=== PATIENT | female | born 1965 | race Caucasian/White ===

== ENCOUNTER 2023-09-20 14:07 | Outpatient (CLI) | payer MEDICAID, SELFPAY ==
--- NOTE | 2023-09-20 14:00 | CRLHL7_ITS ---
For Patients: As a result of the Century Cures Act, medical imaging exams and procedure reports are released immediately into your electronic medical record. You may view this report before your referring provider. If you have questions, please contact your health care provider. BILATERAL SCREENING MAMMOGRAM WITH COMPUTER-AIDED DETECTION AND TOMOSYNTHESIS TECHNIQUE: CC and MLO views were obtained. These mammographic images have been obtained using full-field digital technique. These mammographic images were interpreted with the benefit of computer-aided detection. Breast tomosynthesis was used in this interpretation. COMPARISON FILM: 07/21/22, 04/14/21, 04/03/20. FINDINGS: The breasts are heterogeneously dense, which may obscure small masses. IMPRESSION: There is no radiographic evidence for malignancy. ASSESSMENT: BI-RADS Category 2: Benign RECOMMENDATION: Routine screening mammogram in 1 year. A lay language report of this examination will be provided to the patient. ERIC ATKINSON M.D. Diagnostic Radiologist [email or web address] Transcribed: 09/28/2023, 2:[address]/Dictated by: Eric Atkinson MD @ 09/28/2023 9:56:00 AM (Electronically Signed)
== END 2023-09-20 14:08 | disposition home or self-care (01) ==
LOC: MAMMO 14:07
PROVIDERS: Visit Provider Obstetrics & Gynecology
DX: Z12.31 Encounter for screening mammogram for malignant neoplasm of breast (principal); R92.2 Inconclusive mammogram; Z01.419 Encounter for gynecological examination (general) (routine) without abnormal findings; Z13.6 Encounter for screening for cardiovascular disorders; Z13.1 Encounter for screening for diabetes mellitus
CPT/HCPCS: 77063; 77067; 80061; 82947

== ENCOUNTER 2023-10-21 14:49 | Outpatient (CLI) | payer OTHER, SELFPAY ==
--- NOTE | 2023-10-21 15:00 | CRLHL7_ITS ---
For Patients: As a result of the Century Cures Act, medical imaging exams and procedure reports are released immediately into your electronic medical record. You may view this report before your referring provider. If you have questions, please contact your health care provider. DXA BONE MINERAL DENSITY STUDY Reason for exam: Age-related osteoporosis without current pathology. Current height (inches): 60.0 Weight (lbs.): 140.0 Menopause age: 49 Ethnicity: White 1. Have you had a previous hip or vertebral fracture? No. 2. Have you had any fractures during your adult life which did not result from significant trauma (e.g., auto accident)? No. 3. Did either of your parents have a hip fracture? No. 4. Do you smoke? No. 5. Have you ever taken Glucocorticoids? No. 6. Do you have rheumatoid arthritis? No. 7. Do you have secondary osteoporosis? No. 8. Do you drink 3 or more alcoholic drinks per day? No. 9. Are you being treated for osteoporosis? No. 10. Have you ever taken any of the following medications: Actonel, Evista, Fosamax, Miacalcin, Reclast, Boniva, Forteo, HRT (i.e., estrogen/hormone therapy), Protelos, Prolia, Vitamin D, Calcium, other ??? please specify. ANSWER: Yes; Fosamax, vitamin D, calcium. 11. Do you have any of the following medical conditions: Anorexia or bulimia, asthma or emphysema, end stage renal disease, hyperparathyroidism, any seizure disorders, cancer, inflammatory bowel diseases, hysterectomy, other ??? please specify. ANSWER: No. 12. What was your maximum height (inches)? 60. 13. Do you perform weightbearing exercise regularly? Yes. 14. Do you regularly consume dairy products? Yes. 15. Do you drink caffeinated beverages? Yes. 16. At what age did your period start? 15. 17. Are you premenopausal? No. 18. How many full-term pregnancies have you had? 2. 19. Have you ever missed your period for more than 6 months in a row (not including or menopause)? No. TECHNIQUE: Bone mineral density study was performed using the [employer]. FINDINGS: The results of the study expressed as bone mineral density (BMD) are as follows: Lumbar Spine L1 to L4: BMD: 0.652 g/cm2. T-score: -3.6. Z-score: -2.3. Neck Left: BMD: 0.581 g/cm2. T-score: -2.4. Z-score: -1.2. Right: BMD: 0.611 g/cm2. T-score: -2.1. Z-score: -1.0. Total Left: BMD: 0.747 g/cm2. T-score: -1.6. Z-score: -0.8. Right: BMD: 0.757 g/cm2. T-score: -1.5. Z-score: -0.7. IMPRESSION: Osteoporosis. ERIC ATKINSON M.D. Diagnostic Radiologist [email or web address] Transcribed: 5:[address]/Dictated by: Eric Atkinson MD @ 10/22/2023 8:16:00 AM (Electronically Signed)
== END 2023-10-21 14:50 | disposition home or self-care (01) ==
PROVIDERS: Visit Provider Obstetrics & Gynecology
DX: M81.0 Age-related osteoporosis without current pathological fracture (principal); M85.89 Other specified disorders of bone density and structure, multiple sites
CPT/HCPCS: 77080

== ENCOUNTER 2024-03-22 18:16 | Outpatient (CLI) | payer OTHER, SELFPAY ==
--- NOTE | 2024-03-22 18:15 | CRLHL7_ITS ---
For Patients: As a result of the Century Cures Act, medical imaging exams and procedure reports are released immediately into your electronic medical record. You may view this report before your referring provider. If you have questions, please contact your health care provider. INDICATIONS: Knee pain. Worse with activity. COMPARISON: Plain film 21 Mar 2024. TECHNIQUE: Axial T1 and PD fat-sat, coronal PD and PD fat sat and sagittal PD and T2 fat-sat left knee. FINDINGS: Medial compartment: Meniscus: Intact. Articular cartilage: Minimal shallow uniform grade 2 thinning. MCL: Intact. Cruciate ligaments: ACL: Intact. PCL: Intact. Lateral compartment: Meniscus: Intact. Articular cartilage: Uniform and well-maintained. Lateral collateral complex: Intact. Somewhat thickened iliotibial band. Minimal edema between the IT band and femur and some subtle edema superficial to the thickened fascia. Patellofemoral compartment: Focal increased T2 signal in the mid patella at the junction of medial facet and odd facet. Likely full-thickness fissure between the 2 facets leading to small shallow subchondral cyst with surrounding edema. Trochlear cartilage is uniform. Extensor mechanism: Distal quadriceps tendon and patellar tendon are intact with anatomic patellar alignment. Bones and soft tissues: Subtle short curvilinear focus of edema signal and incomplete low T1 and T2 signal suggesting incomplete stress or insufficiency type trabecular fracture at the anterior medial tibial plateau. No transcortical extension. No kissing contusion in the femur. Physiologic fluid in the joint. Small to moderate-sized popliteal Florence`s cyst. IMPRESSION: 1. Small trabecular insufficiency or stress type fracture at the anterior medial tibial plateau without transcortical extension. 2. No internal derangement of menisci or ligaments. 3. Focal chondromalacia and likely full-thickness fissure at the junction of body and medial facet mid patella. 4. Minor uniform grade 2 cartilage thinning medial compartment. 5. Correlate clinically for iliotibial band syndrome. Dictated by Jalil Hoyt MD @ 03/23/2024 11:33:10 AM (Electronically Signed)
== END 2024-03-22 18:17 | disposition home or self-care (01) ==
PROVIDERS: PCP Family Medicine; Visit Provider Family Medicine
DX: M25.562 Pain in left knee (principal); S89.92XA Unspecified injury of left lower leg, initial encounter; M22.42 Chondromalacia patellae, left knee
CPT/HCPCS: 73721

== ENCOUNTER 2024-05-03 13:45 | Outpatient (RCR) | payer OTHER, SELFPAY | END 2024-08-23 11:33 | disposition home or self-care (01) | PROVIDERS: Visit Provider Physician Assistant Surgical | DX: M84.362A Stress fracture, left tibia, initial encounter for fracture (principal); S89.92XA Unspecified injury of left lower leg, initial encounter; Z74.09 Other reduced mobility; M62.81 Muscle weakness (generalized); M25.562 Pain in left knee; Z51.89 Encounter for other specified aftercare | CPT/HCPCS: 97110; 97161 ==

== ENCOUNTER 2024-06-23 07:13 | Outpatient (CLI) | payer OTHER, SELFPAY ==
--- NOTE | 2024-06-23 07:15 | CRLHL7_ITS ---
For Patients: As a result of the Century Cures Act, medical imaging exams and procedure reports are released immediately into your electronic medical record. You may view this report before your referring provider. If you have questions, please contact your health care provider. INDICATION: Abnormal uterine bleeding COMPARISON: none TECHNIQUE: 2D lazar scale and color Doppler images were acquired of the pelvis using a transabdominal and transvaginal approach. FINDINGS: Sonographic images demonstrate a normal size and smooth outer contour of the uterus. Uterus measures 7.0 cm in length by 2.8 cm in AP diameter by 3.3 cm in transverse dimension. Heterogeneous structure is present adjacent to the endometrium within the posterior uterus measuring 10 x 6 x 7 millimeters. Endometrial stripe measures 2 millimeters. The right ovary measures 2.4 x 1.1 x 1.1 cm in size and the left ovary measures 1.7 x 0.8 x 1.2 cm. The ovaries demonstrate normal arterial and venous blood flow on color Doppler analysis. There are no suspicious fluid collections within the cul-de-sac. IMPRESSION: Probable submucosal fibroid adjacent to the posterior fundal endometrium measuring 1 cm. Dictated by Eric Joiner MD @ 06/23/2024 12:10:59 PM (Electronically Signed)
== END 2024-06-23 07:14 | disposition home or self-care (01) ==
LOC: US 07:13
PROVIDERS: PCP Family Medicine; Visit Provider Obstetrics & Gynecology
DX: N93.9 Abnormal uterine and vaginal bleeding, unspecified (principal); R93.89 Abnormal findings on diagnostic imaging of other specified body structures
CPT/HCPCS: 76830; 76856

== ENCOUNTER 2024-10-06 13:42 | Outpatient (CLI) | payer OTHER, SELFPAY ==
--- NOTE | 2024-10-06 14:00 | CRLHL7_ITS ---
For Patients: As a result of the Century Cures Act, medical imaging exams and procedure reports are released immediately into your electronic medical record. You may view this report before your referring provider. If you have questions, please contact your health care provider. BILATERAL SCREENING MAMMOGRAM WITH COMPUTER-AIDED DETECTION AND TOMOSYNTHESIS TECHNIQUE: CC and MLO views were obtained. These mammographic images have been obtained using full-field digital technique. These mammographic images were interpreted with the benefit of computer-aided detection. Breast Tomosynthesis was used in this interpretation. COMPARISON FILM: 09/20/23, 07/21/22, 04/14/21. FINDINGS: The breasts are heterogeneously dense, which may obscure small masses. IMPRESSION: There is no radiographic evidence for malignancy. ASSESSMENT: BI-RADS Category 2: Benign RECOMMENDATION: Routine screening mammogram in 1 year. A lay language report of this examination will be provided to the patient. Eric Joiner M.D. Diagnostic Radiologist [email or web address] SP/Dictated by: Eric Joiner MD @ 10/09/2024 9:16:00 AM (Electronically Signed)
== END 2024-10-06 13:43 | disposition home or self-care (01) ==
LOC: MAMMO 13:43
PROVIDERS: PCP Family Medicine; Visit Provider Obstetrics & Gynecology
DX: Z12.31 Encounter for screening mammogram for malignant neoplasm of breast (principal); R92.333 Mammographic heterogeneous density, bilateral breasts
CPT/HCPCS: 77063; 77067

== ENCOUNTER 2025-01-10 14:14 | Outpatient (CLI) | payer OTHER, SELFPAY ==
--- NOTE | 2025-01-10 14:30 | CRLHL7_ITS ---
For Patients: As a result of the Century Cures Act, medical imaging exams and procedure reports are released immediately into your electronic medical record. You may view this report before your referring provider. If you have questions, please contact your health care provider. XR DXA BONE MINERAL DENSITY (BMD) Current height (in): 60.0. Weight (lb): 140.0. Menopause age: 49. Ethnicity: White. Reason for exam: Osteoporosis. 1. Have you had a previous hip or vertebral fracture? No. 2. Have you had any fractures during your adult life which did not result from significant trauma (e.g., auto accident)? Yes. 3. Did either of your parents have a hip fracture? No. 4. Do you smoke? No. 5. Have you ever taken Glucocorticoids? No. 6. Do you have rheumatoid arthritis? No. 7. Do you have secondary osteoporosis? No. 8. Do you drink 3 or more alcoholic drinks per day? No. 9. Are you being treated for osteoporosis? Yes. 10. Have you ever taken any of the following medications: Actonel, Evista, Fosamax, Miacalcin, Reclast, Boniva, Forteo, HRT (i.e. estrogen/hormone therapy), Protelos, Prolia, Vitamin D, Calcium, other ??? please specify. ANSWER: Yes; Fosamax, vitamin D, calcium. 11. Do you have any of the following medical conditions: Anorexia or bulimia, asthma or emphysema, end stage renal disease, hyperparathyroidism, any seizure disorders, cancer, inflammatory bowel diseases, hysterectomy, other ??? please specify. ANSWER: No. 12. What was your maximum height (inches)? 60. 13. Do you perform weight bearing exercise regularly? Yes. 14. Do you regularly consume dairy products? Yes. 15. Do you drink caffeinated beverages? Yes. 16. At what age did your period start? 15. 17. Are you premenopausal? No. 18. How many full-term pregnancies have you had? 2. 19. Have you ever missed your period for more than 6 months in a row (not including or menopause)? No. TECHNIQUE: Bone mineral density study was performed using the [employer]. FINDINGS: The results of the study expressed as bone mineral density (BMD) are as follows: Lumbar spine L1 to L4: BMD: 0.727 g/cm2. T-score: -2.9. Z-score: -1.6 Neck Left: BMD: 0.595 g/cm2. T-score: -2.3. Z-score: -1.1 Right: BMD: 0.602 g/cm2. T-score: -2.2. Z-score: -1.0 Total Left: BMD: 0.789 g/cm2. T-score: -1.3. Z-score: -0.4 Right: BMD: 0.786 g/cm2. T-score: -1.3. Z-score: -0.4 IMPRESSION: Osteoporosis. *Comparison exams done prior to 03/2020 were performed on different unit, [facility]. COMPARISON: Compared with scan of 10/21/2023, the bone mineral density has increased by 11.5 percent at the spine and increased by 4.8 percent at the hip. Eric Joiner M.D. Diagnostic Radiologist [email or web address] Transcribed: 9:40 am DW/Dictated by: Eric Joiner MD @ 01/11/2025 8:26:00 AM (Electronically Signed)
== END 2025-01-10 14:15 | disposition home or self-care (01) ==
LOC: RAD 14:14
PROVIDERS: PCP Family Medicine; Referring Provider Internal Medicine Endocrinology, Diabetes & Metabolism; Visit Provider Obstetrics & Gynecology
DX: M81.0 Age-related osteoporosis without current pathological fracture (principal)
CPT/HCPCS: 77080